=== PATIENT | female | born 1930 | race Caucasian/White ===

== ENCOUNTER 2016-11-01 07:34 | Emergency (ER) | payer MEDICARE ==
[~2016-11-01] VITALS: Ht 144.8 cm; Wt 45.0 kg
[~2016-11-01 07:34] MED LIST: AMLODIPINE5 MG OR; AMLODIPINE5 MG PO; ATENOLOL25 MG PO; CEPHALEXIN500 M1 PO; DEPAKOTE SPR125 MG PO; DIVALPROEX125 M1 PO; ENSURE PO; FOLIC ACID1 MG PO; FOLIC ACID400 MC1 PO; LASIX 40 MG40 MG/TAB PO; LEVOTHYROXIN75 MCG PO; LEXAPRO10 MG PO; LISINOPRIL10 MG PO; LORAZEPAM0.5 MG PO; MACROBID100 MG PO; METHOTREXATE2.5 MG OR; ONDANSETRON4 MG PO; SERTRALINE50 MG PO; TYLENOL325 MG PO; ULTRAM50 MG PO; ZOLOFT25 MG PO; ZOVIRAX400 MG OR
[2016-11-01 08:41] VITALS: BP 195/92
== END 2016-11-01 08:43 | disposition home or self-care (01) ==
LOC: ED 07:34
DX: S51.811A Laceration without foreign body of right forearm, initial encounter (principal); S40.022A Contusion of left upper arm, initial encounter; S40.021A Contusion of right upper arm, initial encounter; I12.9 Hypertensive chronic kidney disease with stage 1 through stage 4 chronic kidney disease, or unspecified chronic kidney disease; N18.9 Chronic kidney disease, unspecified; E03.9 Hypothyroidism, unspecified; E78.5 Hyperlipidemia, unspecified; F41.9 Anxiety disorder, unspecified; F32.9 Major depressive disorder, single episode, unspecified; F03.90 Unspecified dementia, unspecified severity, without behavioral disturbance, psychotic disturbance, mood disturbance, and anxiety; W07.XXXA Fall from chair, initial encounter; Z91.81 History of falling

== ENCOUNTER 2016-11-22 19:54 | Emergency (ER) | payer MEDICARE ==
[~2016-11-22] VITALS: Ht 144.8 cm; Wt 59.0 kg
[2016-11-22] MEDS ORDERED: DEPAKOTE SPRIN125 MG PO (20:28)
[2016-11-22 23:20] VITALS: BP 166/74
== END 2016-11-22 23:20 ==
LOC: ED 19:54
DX: S60.222A Contusion of left hand, initial encounter (principal); S60.212A Contusion of left wrist, initial encounter; S00.93XA Contusion of unspecified part of head, initial encounter; S61.412A Laceration without foreign body of left hand, initial encounter; W18.30XA Fall on same level, unspecified, initial encounter; Y92.129 Unspecified place in nursing home as the place of occurrence of the external cause; F03.90 Unspecified dementia, unspecified severity, without behavioral disturbance, psychotic disturbance, mood disturbance, and anxiety